=== PATIENT | male | born 1980 | race Two or more races ===

== ENCOUNTER 2020-06-17 11:17 | Emergency (ER) | payer SELFPAY ==
[~2020-06-17] VITALS: Ht 177.8 cm; Wt 77.6 kg
[2020-06-17 12:02] VITALS: Ht 177.8 cm; Wt 77.6 kg
[2020-06-17 12:54] VITALS: BP 111/75
== END 2020-06-17 12:54 | disposition home or self-care (01) ==
LOC: ED 11:17
DX: S01.112A Laceration without foreign body of left eyelid and periocular area, initial encounter (principal); R42 Dizziness and giddiness; Z98.890 Other specified postprocedural states; W51.XXXA Accidental striking against or bumped into by another person, initial encounter; Y93.66 Activity, soccer; Y92.89 Other specified places as the place of occurrence of the external cause; Y99.8 Other external cause status
CPT/HCPCS: 90715; J2001